=== PATIENT | male | born 1970 | race Caucasian/White ===

== ENCOUNTER 2021-03-05 18:40 | Emergency (ER) | payer OTHER ==
[~2021-03-05] VITALS: Ht 172.7 cm; Wt 107.0 kg
[2021-03-05] MEDS ORDERED: HYDROCODONE/ACETAMINOPHEN 5/325MG TABLET PO ONE (19:15)
[2021-03-05] MEDS ORDERED: IBUP-2029 MT (20:07)
[2021-03-05 20:26] VITALS: BP 136/88
== END 2021-03-05 20:29 | disposition home or self-care (01) ==
LOC: ER 18:40
DX: M25.572 Pain in left ankle and joints of left foot (principal); W22.8XXA Striking against or struck by other objects, initial encounter; Y93.89 Activity, other specified; Y92.39 Other specified sports and athletic area as the place of occurrence of the external cause; Y99.8 Other external cause status
CPT/HCPCS: 73610; 99283